=== PATIENT | female | born 1935 | race Caucasian/White ===

== ENCOUNTER 2017-06-24 09:21 | Observation (INO) ==
[2017-06-24] MEDS ORDERED: PANTOPRAZOLE 40 MG VIAL IV STA (10:03)
[2017-06-24] MEDS ORDERED: SODIUM CHLORIDE 0.9% 500 ML IV STA (10:03)
[2017-06-24] MEDS ORDERED: PANTOPRAZOLE 40 MG VIAL IV ONE (10:41)
[2017-06-24 11:16] LABS: Basophils % 0.4 % (0.0-0.8); Eosinophils % 0.3 % (0.00-10.9); Hematocrit 37.8 VOL% (35.7-47.0); Hemoglobin 12.5 GM/DL (12.0-16.0); Immature Granulocytes % 0.4 %; Immature Granulocytes Absolute 0.03 #; Lymphocytes # 1.1 10*3/uL (1.4-4.0); Lymphocytes % 13.9 % (21.3-54.2); Mean Corpuscular HGB Conc 33.1 GM/DL (32-36); Mean Corpuscular Hemoglobin 32 PG (27-34); Mean Corpuscular Volume 95.7 FL (87-102); Mean Platelet Volume 12.4 FL (9.6-12.0); Monocytes # 0.4 10*3/uL (0.11-0.8); Monocytes % 4.9 % (1.7-12.7); Neutrophils # 6.3 10*3/uL (1.4-7.4); Neutrophils % 80.1 % (38.7-73.9); Platelet Count 194 T/CUMM (130-400); Red Blood Count 3.95 MC/CUMM (3.8-5.5); Red Cell Distribution Width 12.8 % (9.3-17.3); White Blood Count 7.9 T/CUMM (4-12)
[2017-06-24 11:28] LABS: PT Patient Result 10.2 SECS
[2017-06-24 11:37] LABS: Alanine Aminotransferase 19 U/L (13-56); Albumin 3.2 G/DL (3.4-5.0); Alkaline Phosphatase 76 U/L (45-117); Aspartate Amino Transferase 22 U/L (0-37); Bilirubin,Total < 0.39 MG/DL (0.2-1.0); Blood Urea Nitrogen 18 MG/DL (7-18); Calcium 8.4 MG/DL (8.5-10.1); Glucose 167 MG/DL (74-106); Osmolality,Calculated 280.7 MOS/KG (273-304); Potassium 3.8 MMOL/L (3.5-5.1); Sodium 138 MMOL/L (136-145)
[2017-06-24] MEDS ORDERED: ONDANSETRON 4 MG/2 ML VIAL IV PRN (14:24)
[2017-06-24] MEDS ORDERED: ACETAMINOPHEN 325 MG TABLET PO PRN (14:24)
[2017-06-24] MEDS: SODIUM CHLORIDE 0.9% 1,000 ML IV SCH ×2 (14:45→23:34)
[2017-06-24 17:45] LABS: Hemoglobin 11.2 GM/DL (12.0-16.0)
[2017-06-24] MEDS ORDERED: MAGNESIUM SULF RIDER 1 GM in PREMIX 1 EACH IV ONE (18:36)
[2017-06-24] MEDS ORDERED: ALPRAZolam 0.25 MG TABLET PO PRN (18:36)
[2017-06-24] MEDS ORDERED: DEXTROSE 50% 25 GM/50 ML VIAL IV PRN (18:39)
[2017-06-24] MEDS ORDERED: GLUCAGON 1 MG VIAL IM PRN (18:39)
[2017-06-24] MEDS ORDERED: MAGNESIUM HYDROXIDE SUSP 30 ML UDCUP PO PRN (19:11)
[2017-06-24] MEDS: NITROFURANTOIN MACROCRYSTALS 100 MG CAPSULE PO SCH (20:07)
[2017-06-24] MEDS: MELATONIN 3 MG TABLET PO SCH (20:08)
[2017-06-24] MEDS: DOCUSATE SODIUM 100 MG CAPSULE PO SCH (20:08)
[2017-06-24] MEDS: traZODone 50 MG TABLET PO SCH (20:08)
[2017-06-24] MEDS ORDERED: METOPROLOL SUCCINATE XL 25 MG TABLET PO SCH (21:00)
[2017-06-24] MEDS: INSULIN REGULAR 100 UNIT/ML SUBCUT SCH (21:18)
[2017-06-25 00:47] LABS: Hematocrit 31.4 VOL% (35.7-47.0); Hemoglobin 10.6 GM/DL (12.0-16.0)
[2017-06-25 07:41] LABS: Hemoglobin 11.6 GM/DL (12.0-16.0)
[2017-06-25 07:43] LABS: Basophils % 0.2 % (0.0-0.8); Eosinophils % 0.4 % (0.00-10.9); Hemoglobin 11.6 GM/DL (12.0-16.0); Immature Granulocytes % 0.3 %; Immature Granulocytes Absolute 0.03 #; Lymphocytes # 2.9 10*3/uL (1.4-4.0); Lymphocytes % 31.2 % (21.3-54.2); Mean Corpuscular HGB Conc 33.1 GM/DL (32-36); Mean Corpuscular Hemoglobin 32 PG (27-34); Mean Corpuscular Volume 96.2 FL (87-102); Mean Platelet Volume 12.6 FL (9.6-12.0); Monocytes # 0.5 10*3/uL (0.11-0.8); Monocytes % 5.6 % (1.7-12.7); Neutrophils # 5.8 10*3/uL (1.4-7.4); Neutrophils % 62.3 % (38.7-73.9); Platelet Count 232 T/CUMM (130-400); Red Blood Count 3.64 MC/CUMM (3.8-5.5); Red Cell Distribution Width 12.9 % (9.3-17.3); White Blood Count 9.3 T/CUMM (4-12)
[2017-06-25 08:11] LABS: Albumin 3.4 G/DL (3.4-5.0); Bilirubin,Total 0.6 MG/DL (0.2-1.0); Calcium 8.2 MG/DL (8.5-10.1); Osmolality,Calculated 278.5 MOS/KG (273-304); Potassium 3.7 MMOL/L (3.5-5.1)
[2017-06-25] MEDS: SODIUM CHLORIDE 0.9% 1,000 ML IV SCH ×2 (08:58→19:06)
[2017-06-25] MEDS: INSULIN REGULAR 100 UNIT/ML SUBCUT SCH ×4 (08:59→22:34)
[2017-06-25] MEDS ORDERED: BISACODYL 5 MG TABLET PO ONE (12:00)
[2017-06-25] MEDS ORDERED: PROPOFOL 200 MG/20 ML VIAL IV ONE (12:13)
[2017-06-25] MEDS ORDERED: LIDOCAINE 2% 5 ML VIAL ONE (12:13)
[2017-06-25] MEDS: DOCUSATE SODIUM 100 MG CAPSULE PO SCH ×2 (12:23→22:34)
[2017-06-25 13:17] LABS: Hematocrit 32.9 VOL% (35.7-47.0); Hemoglobin 10.6 GM/DL (12.0-16.0)
[2017-06-25] MEDS ORDERED: POLYETHYLENE GLYCOL POWDER 255 GM BOTTLE PO ONE (14:00)
[2017-06-25] MEDS ORDERED: MAGNESIUM CITRATE 300 ML BOTTLE PO ONE (21:00)
[2017-06-25] MEDS: traZODone 50 MG TABLET PO SCH (22:34)
[2017-06-25] MEDS: NITROFURANTOIN MACROCRYSTALS 100 MG CAPSULE PO SCH (22:34)
[2017-06-25] MEDS: MELATONIN 3 MG TABLET PO SCH (22:34)
[2017-06-26 07:04] LABS: Basophils % 0.4 % (0.0-0.8); Eosinophils # 0.1 10*3/uL (0.0-0.87); Hematocrit 32.5 VOL% (35.7-47.0); Hemoglobin 10.7 GM/DL (12.0-16.0); Immature Granulocytes % 0.3 %; Immature Granulocytes Absolute 0.02 #; Lymphocytes # 2.4 10*3/uL (1.4-4.0); Lymphocytes % 34.9 % (21.3-54.2); Mean Corpuscular HGB Conc 32.9 GM/DL (32-36); Mean Corpuscular Hemoglobin 32 PG (27-34); Mean Corpuscular Volume 96.4 FL (87-102); Mean Platelet Volume 12.2 FL (9.6-12.0); Monocytes # 0.5 10*3/uL (0.11-0.8); Monocytes % 6.5 % (1.7-12.7); Neutrophils # 3.9 10*3/uL (1.4-7.4); Neutrophils % 56.9 % (38.7-73.9); Platelet Count 204 T/CUMM (130-400); Red Blood Count 3.37 MC/CUMM (3.8-5.5); Red Cell Distribution Width 12.7 % (9.3-17.3); White Blood Count 6.9 T/CUMM (4-12)
[2017-06-26 07:40] LABS: Albumin 3.3 G/DL (3.4-5.0); Bilirubin,Total 1.2 MG/DL (0.2-1.0); Calcium 8.3 MG/DL (8.5-10.1); Osmolality,Calculated 279.4 MOS/KG (273-304); Potassium 3.3 MMOL/L (3.5-5.1); Total Protein 5.8 G/DL (6.4-8.3)
[2017-06-26] MEDS: INSULIN REGULAR 100 UNIT/ML SUBCUT SCH ×4 (08:24→21:10)
[2017-06-26] MEDS: DOCUSATE SODIUM 100 MG CAPSULE PO SCH ×2 (09:17→21:11)
[2017-06-26] MEDS: CALCIUM (CARBONATE) 500 MG TABLET PO SCH (09:18)
[2017-06-26] MEDS ORDERED: LIDOCAINE 2% 5 ML VIAL ONE (09:50)
[2017-06-26] MEDS ORDERED: PROPOFOL 200 MG/20 ML VIAL IV ONE (09:50)
[2017-06-26] MEDS: SODIUM CHLORIDE 0.9% 1,000 ML IV SCH (12:41)
[2017-06-26] MEDS: traZODone 50 MG TABLET PO SCH (21:11)
[2017-06-26] MEDS: NITROFURANTOIN MACROCRYSTALS 100 MG CAPSULE PO SCH (21:11)
[2017-06-26] MEDS: MELATONIN 3 MG TABLET PO SCH (21:11)
[2017-06-26] MEDS ORDERED: POTASSIUM CHLORIDE 20 MEQ TABLET PO ONE (21:30)
[2017-06-27] MEDS ORDERED: POTASSIUM CHLORIDE 20 MEQ TABLET PO ONE (05:00)
[2017-06-27 07:03] VITALS: BP 132/70
[2017-06-27] MEDS: CALCIUM (CARBONATE) 500 MG TABLET PO SCH (08:07)
[2017-06-27] MEDS: DOCUSATE SODIUM 100 MG CAPSULE PO SCH (08:07)
[2017-06-27] MEDS: INSULIN REGULAR 100 UNIT/ML SUBCUT SCH (08:07)
[2017-06-27] MEDS: SODIUM CHLORIDE 0.9% 1,000 ML IV SCH (08:09)
[2017-06-27] MEDS ORDERED: FERROUS SULFATE 325 MG TABLET PO SCH (09:00)
== END 2017-06-27 09:42 | disposition home health service (06) ==
LOC: N.ED 09:21 → N.EDINP 09:21 → N.TELES 14:43 → N.5E 15:04
PROVIDERS: ADMIT Internal Medicine; ATTEND Internal Medicine

== ENCOUNTER 2017-07-21 12:45 | Observation (INO) ==
[2017-07-21 15:04] LABS: Basophils % 0.4 % (0.0-0.8); Eosinophils % 0.1 % (0.00-10.9); Hematocrit 37.5 VOL% (35.7-47.0); Hemoglobin 12.3 GM/DL (12.0-16.0); Immature Granulocytes % 0.3 %; Immature Granulocytes Absolute 0.02 #; Lymphocytes # 1.3 10*3/uL (1.4-4.0); Lymphocytes % 17.8 % (21.3-54.2); Mean Corpuscular HGB Conc 32.8 GM/DL (32-36); Mean Corpuscular Hemoglobin 32 PG (27-34); Mean Corpuscular Volume 95.9 FL (87-102); Mean Platelet Volume 11.3 FL (9.6-12.0); Monocytes # 0.6 10*3/uL (0.11-0.8); Monocytes % 8.4 % (1.7-12.7); Neutrophils # 5.2 10*3/uL (1.4-7.4); Platelet Count 233 T/CUMM (130-400); Red Blood Count 3.91 MC/CUMM (3.8-5.5); Red Cell Distribution Width 12.4 % (9.3-17.3); White Blood Count 7.1 T/CUMM (4-12)
[2017-07-21 15:15] LABS: Fibrinogen Quant Value 242 MG% (200-400); PT Patient Result 10.6 SECS; Partial Thromboplastin Time 26.1 SECS (0-40)
[2017-07-21 15:30] LABS: Albumin 3.4 G/DL (3.4-5.0); Bilirubin,Total 0.4 MG/DL (0.2-1.0); Calcium 8.8 MG/DL (8.5-10.1); Osmolality,Calculated 276.8 MOS/KG (273-304); Potassium 4.1 MMOL/L (3.5-5.1); Total Protein 6.5 G/DL (6.4-8.3)
[2017-07-21] MEDS ORDERED: PANTOPRAZOLE 40 MG VIAL IV SCH (18:30)
[2017-07-21 19:46] LABS: Basophils % 0.3 % (0.0-0.8); Eosinophils # 0.1 10*3/uL (0.0-0.87); Eosinophils % 0.7 % (0.00-10.9); Hematocrit 34.4 VOL% (35.7-47.0); Hemoglobin 11.3 GM/DL (12.0-16.0); Immature Granulocytes % 0.3 %; Immature Granulocytes Absolute 0.02 #; Lymphocytes # 1.5 10*3/uL (1.4-4.0); Lymphocytes % 20.9 % (21.3-54.2); Mean Corpuscular HGB Conc 32.8 GM/DL (32-36); Mean Corpuscular Hemoglobin 31 PG (27-34); Monocytes # 0.7 10*3/uL (0.11-0.8); Monocytes % 10.2 % (1.7-12.7); Neutrophils # 4.8 10*3/uL (1.4-7.4); Neutrophils % 67.6 % (38.7-73.9); Platelet Count 230 T/CUMM (130-400); Red Blood Count 3.62 MC/CUMM (3.8-5.5); Red Cell Distribution Width 12.2 % (9.3-17.3); White Blood Count 7.1 T/CUMM (4-12)
[2017-07-21 20:11] LABS: Alanine Aminotransferase 19 U/L (13-56); Albumin 3.1 G/DL (3.4-5.0); Alkaline Phosphatase 68 U/L (45-117); Aspartate Amino Transferase 17 U/L (0-37); Bilirubin,Total < 0.39 MG/DL (0.2-1.0); Blood Urea Nitrogen 15 MG/DL (7-18); Calcium 7.7 MG/DL (8.5-10.1); Glucose 111 MG/DL (74-106); Osmolality,Calculated 276.7 MOS/KG (273-304); Potassium 4.1 MMOL/L (3.5-5.1); Sodium 138 MMOL/L (136-145); Total Protein 5.7 G/DL (6.4-8.3)
[2017-07-22] MEDS ORDERED: traZODone 50 MG TABLET PO PRN (00:13)
[2017-07-22] MEDS ORDERED: MAGNESIUM HYDROXIDE SUSP 30 ML UDCUP PO PRN (07:11)
[2017-07-22 07:53] VITALS: BP 127/66
[2017-07-22] MEDS ORDERED: ASPIRIN EC 81 MG TABLET PO SCH (09:00)
[2017-07-22] MEDS ORDERED: DOCUSATE SODIUM 100 MG CAPSULE PO SCH (09:00)
[2017-07-22] MEDS ORDERED: SERTRALINE 50 MG TABLET PO SCH (09:00)
[2017-07-22] MEDS ORDERED: FERROUS SULFATE 325 MG TABLET PO SCH (09:00)
== END 2017-07-22 10:07 | disposition home or self-care (01) ==
LOC: N.EDINP 12:45 → N.ED 12:45 → N.4E 18:45
PROVIDERS: ADMIT Family Medicine; ATTEND Internal Medicine

== ENCOUNTER 2019-09-19 13:14 | Observation (INO) ==
[2019-09-19] MEDS ORDERED: PANTOPRAZOLE 40 MG VIAL IV STA (13:55)
[2019-09-19 14:16] LABS: Basophils % 0.2 % (0.0-0.8); Eosinophils % 0.4 % (0.00-10.9); Hemoglobin 12.9 GM/DL (12.0-16.0); Immature Granulocytes % 0.4 %; Immature Granulocytes Absolute 0.04 #; Lymphocytes # 1.7 10*3/uL (1.4-4.0); Mean Corpuscular HGB Conc 32.3 GM/DL (32-36); Mean Corpuscular Volume 90.3 FL (87-102); Mean Platelet Volume 11.1 FL (9.6-12.0); Monocytes % 6.3 % (1.7-12.7); Neutrophils % 74.7 % (38.7-73.9); Platelet Count 276 T/CUMM (130-400); Red Blood Count 4.43 MC/CUMM (3.8-5.5); Red Cell Distribution Width 13.4 % (9.3-17.3); White Blood Count 9.6 T/CUMM (4-12)
[2019-09-19 14:28] LABS: PT Patient Result 10.3 SECS (9.8-11.9); Partial Thromboplastin Time 26.7 SECS (23.9-33.8)
[2019-09-19 14:45] LABS: Alanine Aminotransferase 22 U/L (13-56); Albumin 3.4 G/DL (3.4-5.0); Alkaline Phosphatase 99 U/L (45-117); Aspartate Amino Transferase 19 U/L (0-37); Bilirubin,Total < 0.39 MG/DL (0.2-1.0); Blood Urea Nitrogen 17 MG/DL (7-18); Calcium 9.1 MG/DL (8.5-10.1); Estimated Glom Filtration Rate 79 ML/MIN; Glucose 218 MG/DL (74-106); Osmolality,Calculated 287.4 MOS/KG (273-304); Total Protein 7.2 G/DL (6.4-8.3)
[2019-09-19] MEDS ORDERED: ONDANSETRON 4 MG/2 ML VIAL IV PRN (15:37)
[2019-09-19] MEDS ORDERED: ACETAMINOPHEN 325 MG TABLET PO PRN (15:37)
[2019-09-19] MEDS: SODIUM CHLORIDE 0.9% 1,000 ML IV SCH (18:17)
[2019-09-19] MEDS: OXYBUTYNIN 5 MG TABLET PO SCH (20:37)
[2019-09-20] MEDS: TEMAZEPAM 7.5 MG CAPSULE PO PRN ×2 (00:27→21:31)
[2019-09-20 05:47] LABS: Basophils % 0.5 % (0.0-0.8); Eosinophils # 0.1 10*3/uL (0.0-0.87); Eosinophils % 2.4 % (0.00-10.9); Hematocrit 33.1 VOL% (35.7-47.0); Hemoglobin 10.6 GM/DL (12.0-16.0); Immature Granulocytes % 0.3 %; Immature Granulocytes Absolute 0.02 #; Lymphocytes % 34.4 % (21.3-54.2); Mean Corpuscular Volume 90.7 FL (87-102); Mean Platelet Volume 11.7 FL (9.6-12.0); Monocytes % 10.4 % (1.7-12.7); Platelet Count 206 T/CUMM (130-400); Red Blood Count 3.65 MC/CUMM (3.8-5.5); Red Cell Distribution Width 13.5 % (9.3-17.3); White Blood Count 5.8 T/CUMM (4-12)
[2019-09-20] MEDS ORDERED: MELATONIN 3 MG TABLET PO SCH (09:00)
[2019-09-20] MEDS: TAMSULOSIN 0.4 MG CAPSULE PO SCH (09:33)
[2019-09-20] MEDS: CHOLECALCIFEROL 1,000 UNIT TABLET PO SCH (09:33)
[2019-09-20] MEDS: CYANOCOBALAMIN 100 MCG TABLET PO SCH (09:33)
[2019-09-20] MEDS: FUROSEMIDE 20 MG TABLET PO SCH (09:33)
[2019-09-20] MEDS: OXYBUTYNIN 5 MG TABLET PO SCH ×2 (09:34→21:31)
[2019-09-20] MEDS: PANTOPRAZOLE 40 MG VIAL IV SCH (09:34)
[2019-09-20] MEDS: SODIUM CHLORIDE 0.9% 1,000 ML IV SCH (12:01)
[2019-09-20] MEDS ORDERED: GLUCAGON 1 MG VIAL IM PRN (22:29)
[2019-09-20] MEDS ORDERED: DEXTROSE 50% 25 GM/50 ML VIAL IV PRN (22:29)
[2019-09-20] MEDS ORDERED: POLYETHYLENE GLYCOL POWDER 17 GM PACK PO PRN (22:37)
[2019-09-20] MEDS ORDERED: IRON SUCROSE 200 MG in SODIUM CHLORIDE 0.9% 100 ML IV ONE (23:00)
[2019-09-21] MEDS ORDERED: IRON SUCROSE 200 MG in SODIUM CHLORIDE 0.9% 100 ML IV ONE (02:30)
[2019-09-21 05:54] LABS: Basophils % 0.2 % (0.0-0.8); Eosinophils # 0.1 10*3/uL (0.0-0.87); Eosinophils % 1.9 % (0.00-10.9); Hematocrit 32.2 VOL% (35.7-47.0); Hemoglobin 10.4 GM/DL (12.0-16.0); Immature Granulocytes % 0.3 %; Immature Granulocytes Absolute 0.02 #; Lymphocytes # 1.7 10*3/uL (1.4-4.0); Lymphocytes % 28.8 % (21.3-54.2); Mean Corpuscular HGB Conc 32.3 GM/DL (32-36); Mean Corpuscular Volume 91.5 FL (87-102); Mean Platelet Volume 11.5 FL (9.6-12.0); Monocytes % 9.5 % (1.7-12.7); Neutrophils % 59.3 % (38.7-73.9); Platelet Count 215 T/CUMM (130-400); Red Blood Count 3.52 MC/CUMM (3.8-5.5); Red Cell Distribution Width 13.4 % (9.3-17.3); White Blood Count 5.9 T/CUMM (4-12)
[2019-09-21 06:23] LABS: Albumin 2.6 G/DL (3.4-5.0); Calcium 7.9 MG/DL (8.5-10.1); Osmolality,Calculated 284.1 MOS/KG (273-304); Total Protein 5.6 G/DL (6.4-8.3)
[2019-09-21] MEDS ORDERED: LACTATED RINGERS 1,000 ML IV SCH (08:00)
[2019-09-21] MEDS: INSULIN REGULAR 100 UNIT/ML SUBCUT SCH ×3 (09:02→16:31)
[2019-09-21] MEDS: CYANOCOBALAMIN 100 MCG TABLET PO SCH (09:56)
[2019-09-21] MEDS: FUROSEMIDE 20 MG TABLET PO SCH (09:56)
[2019-09-21] MEDS: CHOLECALCIFEROL 1,000 UNIT TABLET PO SCH (09:56)
[2019-09-21] MEDS: OXYBUTYNIN 5 MG TABLET PO SCH (09:56)
[2019-09-21] MEDS: SODIUM CHLORIDE 0.9% 1,000 ML IV SCH (09:57)
[2019-09-21] MEDS: TAMSULOSIN 0.4 MG CAPSULE PO SCH (09:57)
[2019-09-21] MEDS: PANTOPRAZOLE 40 MG VIAL IV SCH (09:57)
[2019-09-21 16:21] VITALS: BP 133/68
[2019-09-21] MEDS ORDERED: MELATONIN 3 MG TABLET PO SCH (21:00)
[2019-09-22] MEDS ORDERED: LACTATED RINGERS 1,000 ML IV SCH (08:00)
== END 2019-09-21 18:30 | disposition home or self-care (01) ==
LOC: N.ED 13:14 → INTOOBSV 15:37 → N.EDINP 15:37 → N.TELES 17:05
PROVIDERS: ADMIT Internal Medicine; ATTEND Internal Medicine

== ENCOUNTER 2020-06-13 13:56 | Inpatient (IN) ==
[2020-06-13] MEDS ORDERED: PANTOPRAZOLE 40 MG VIAL IV STA (14:24)
[2020-06-13] MEDS ORDERED: ONDANSETRON 4 MG/2 ML VIAL IV STA (14:24)
[2020-06-13] MEDS ORDERED: SODIUM CHLORIDE 0.9% 1,000 ML IV STA (14:24)
[2020-06-13 14:41] LABS: Basophils % 0.2 % (0.0-0.8); Eosinophils # 0.1 10*3/uL (0.0-0.87); Eosinophils % 0.7 % (0.00-10.9); Hematocrit 34.2 VOL% (35.7-47.0); Hemoglobin 11.1 GM/DL (12.0-16.0); Immature Granulocytes % 0.4 %; Immature Granulocytes Absolute 0.03 #; Lymphocytes # 1.5 10*3/uL (1.4-4.0); Lymphocytes % 17.6 % (21.3-54.2); Mean Corpuscular HGB Conc 32.5 GM/DL (32-36); Mean Corpuscular Volume 91.9 FL (87-102); Mean Platelet Volume 11.2 FL (9.6-12.0); Neutrophils % 74.1 % (38.7-73.9); Platelet Count 226 T/CUMM (130-400); Red Blood Count 3.72 MC/CUMM (3.8-5.5); Red Cell Distribution Width 13.5 % (9.3-17.3); White Blood Count 8.3 T/CUMM (4-12)
[2020-06-13 14:50] LABS: PT Patient Result 10.3 SECS (9.8-11.9)
[2020-06-13 14:58] LABS: Alanine Aminotransferase 14 U/L (13-56); Albumin 3.3 G/DL (3.4-5.0); Alkaline Phosphatase 73 U/L (45-117); Aspartate Amino Transferase 15 U/L (0-37); Bilirubin,Total < 0.39 MG/DL (0.2-1.0); Blood Urea Nitrogen 18 MG/DL (7-18); Calcium 8.7 MG/DL (8.5-10.1); Carbon Dioxide 27 MMOL/L (21-32); Estimated Glom Filtration Rate 68 ML/MIN; Glucose 320 MG/DL (74-106); Potassium 3.8 MMOL/L (3.5-5.1); Sodium 136 MMOL/L (136-145); Total Protein 5.8 G/DL (6.4-8.2)
[2020-06-13] MEDS ORDERED: ONDANSETRON 4 MG/2 ML VIAL IV PRN (17:31)
[2020-06-13] MEDS ORDERED: GLUCAGON 1 MG VIAL IM PRN (17:31)
[2020-06-13] MEDS ORDERED: DEXTROSE 50% 25 GM/50 ML VIAL IV PRN (17:31)
[2020-06-13] MEDS ORDERED: ACETAMINOPHEN 325 MG TABLET PO PRN (17:31)
[2020-06-13] MEDS: SODIUM CHLORIDE 0.9% 1,000 ML IV SCH (18:28)
[2020-06-13] MEDS: INSULIN LISPRO 100 UNIT/ML SUBCUT SCH ×2 (18:34→21:47)
[2020-06-13] MEDS: DOCUSATE SODIUM 100 MG CAPSULE PO SCH (21:46)
[2020-06-13] MEDS: traMADol 50 MG TABLET PO SCH (21:46)
[2020-06-13] MEDS: MELATONIN 3 MG TABLET PO SCH (21:47)
[2020-06-13] MEDS: OXYBUTYNIN 5 MG TABLET PO SCH (21:47)
[2020-06-14] MEDS: SODIUM CHLORIDE 0.9% 1,000 ML IV SCH ×3 (02:47→17:38)
[2020-06-14 05:43] LABS: Basophils % 0.4 % (0.0-0.8); Eosinophils # 0.1 10*3/uL (0.0-0.87); Eosinophils % 1.6 % (0.00-10.9); Hematocrit 28.4 VOL% (35.7-47.0); Hemoglobin 9.3 GM/DL (12.0-16.0); Immature Granulocytes % 0.4 %; Immature Granulocytes Absolute 0.02 #; Lymphocytes # 1.6 10*3/uL (1.4-4.0); Lymphocytes % 29.2 % (21.3-54.2); Mean Corpuscular HGB Conc 32.7 GM/DL (32-36); Mean Corpuscular Volume 93.1 FL (87-102); Mean Platelet Volume 11.4 FL (9.6-12.0); Monocytes % 9.1 % (1.7-12.7); Neutrophils % 59.3 % (38.7-73.9); Platelet Count 190 T/CUMM (130-400); Red Blood Count 3.05 MC/CUMM (3.8-5.5); Red Cell Distribution Width 13.6 % (9.3-17.3); White Blood Count 5.6 T/CUMM (4-12)
[2020-06-14] MEDS: INSULIN LISPRO 100 UNIT/ML SUBCUT SCH ×3 (08:41→15:41)
[2020-06-14] MEDS: DOCUSATE SODIUM 100 MG CAPSULE PO SCH ×2 (08:42→20:27)
[2020-06-14] MEDS: OXYBUTYNIN 5 MG TABLET PO SCH ×2 (08:42→20:28)
[2020-06-14] MEDS: traMADol 50 MG TABLET PO SCH ×2 (08:42→20:27)
[2020-06-14] MEDS: POLYETHYLENE GLYCOL POWDER 17 GM PACK PO SCH (08:42)
[2020-06-14] MEDS: PANTOPRAZOLE 40 MG TABLET PO SCH (08:42)
[2020-06-14] MEDS: MELATONIN 3 MG TABLET PO SCH (20:27)
[2020-06-14] MEDS: MUPIROCIN 2% OINT 22 GM TUBE TOP SCH (20:27)
[2020-06-15] MEDS: SODIUM CHLORIDE 0.9% 1,000 ML IV SCH (01:26)
[2020-06-15 06:25] LABS: Basophils % 0.3 % (0.0-0.8); Eosinophils # 0.1 10*3/uL (0.0-0.87); Hematocrit 29.8 VOL% (35.7-47.0); Hemoglobin 9.5 GM/DL (12.0-16.0); Immature Granulocytes % 0.3 %; Immature Granulocytes Absolute 0.02 #; Lymphocytes # 1.6 10*3/uL (1.4-4.0); Mean Corpuscular HGB Conc 31.9 GM/DL (32-36); Mean Corpuscular Volume 93.4 FL (87-102); Monocytes % 8.2 % (1.7-12.7); Neutrophils % 64.2 % (38.7-73.9); Platelet Count 204 T/CUMM (130-400); Red Blood Count 3.19 MC/CUMM (3.8-5.5); Red Cell Distribution Width 13.8 % (9.3-17.3); White Blood Count 6.4 T/CUMM (4-12)
[2020-06-15] MEDS ORDERED: LACTATED RINGERS 1,000 ML IV SCH (08:00)
[2020-06-15] MEDS: MUPIROCIN 2% OINT 22 GM TUBE TOP SCH (09:04)
[2020-06-15] MEDS: POLYETHYLENE GLYCOL POWDER 17 GM PACK PO SCH (10:18)
[2020-06-15] MEDS: OXYBUTYNIN 5 MG TABLET PO SCH (10:18)
[2020-06-15] MEDS: DOCUSATE SODIUM 100 MG CAPSULE PO SCH (10:18)
[2020-06-15] MEDS: PANTOPRAZOLE 40 MG TABLET PO SCH (10:19)
[2020-06-15] MEDS: traMADol 50 MG TABLET PO SCH (10:19)
[2020-06-15] MEDS ORDERED: LIDOCAINE 2% 5 ML VIAL ONE (10:53)
[2020-06-15] MEDS ORDERED: propofoL 200 MG/20 ML VIAL IV ONE (10:53)
[2020-06-15] MEDS ORDERED: LOSARTAN 25 MG TABLET PO SCH (12:30)
[2020-06-15 13:21] VITALS: BP 138/52
[2020-06-16] MEDS ORDERED: LOSARTAN 25 MG TABLET PO SCH (12:30)
== END 2020-06-15 13:53 | disposition home or self-care (01) | DRG 379 ==
LOC: N.ED 13:56 → N.EDINP 15:09 → N.5E 16:44
PROVIDERS: ADMIT Internal Medicine; ATTEND Internal Medicine